=== PATIENT | female | born 1945 | race Caucasian/White ===

== ENCOUNTER 2018-06-11 05:33 | Observation (INO) ==
[2018-06-11] MEDS ORDERED: Chlorhexidine Gluconate 2% 1 Pack (2 Cloths) TOPICAL ONE (06:07)
[2018-06-11] MEDS ORDERED: Metoprolol Tartrate 25 MG Tablet PO ONE (06:07)
[2018-06-11] MEDS ORDERED: Heparin - SQ 10,000 UNITS/ML Vial SQ PRN (06:09)
[2018-06-11] MEDS ORDERED: Sodium Chloride 0.9% 2 ML Flush PRN IV.FLUSH (06:11)
[2018-06-11] MEDS ORDERED: Sodium Chlor 0.9% Inj 500 ML IV.SIG SCH (07:00)
[2018-06-11] MEDS ORDERED: Lidocaine 1%/Epinephrine 1:100,000 Inj 30 ML Vial ONE (07:00)
[2018-06-11] MEDS: ceFAZolin 2 GM IV; once IV.SIG PRN ×2 (07:01→08:00)
[2018-06-11] MEDS ORDERED: Glycopyrrolate Inj 1 MG/5 ML Syringe IV.PUSH ONE (07:23)
[2018-06-11] MEDS ORDERED: Lidocaine PF 1% Inj 5 ML Syringe OTHER ONE (07:23)
[2018-06-11] MEDS ORDERED: Normosol-R pH 7.4 Inj 3,000 ML IV.CONT ONE (07:23)
[2018-06-11] MEDS ORDERED: Methylene Blue Inj 100 MG/10 ML Vial OTHER ONE (11:19)
[2018-06-11] MEDS ORDERED: Sugammadex Inj 200 MG/2 ML Vial IV.PUSH ONE (11:35)
[2018-06-11] MEDS ORDERED: LORazepam 0.5 MG Tablet PO PRN (12:13)
[2018-06-11] MEDS ORDERED: fentaNYL Citrate Inj 100 MCG/2 ML Ampul ONE (12:44)
[2018-06-11] MEDS: KCL 20 mEq/D5W/NaCl 0.45% Inj 1,000 ML IV.CONT SCH ×2 (12:50→23:37)
[2018-06-11] MEDS ORDERED: *morphine SULFATE 4 MG/ML PERIprocedure ONLY ONE (13:07)
--- NOTE | 2018-06-11 13:48 | MP ---
cc: Tiffanie Hoang MD,Gracy Ortiz,Ha Rodríguez MD DATE OF OPERATION: 06/11/2018 DATE OF PROCEDURE: 06/11/2018 PREOPERATIVE DIAGNOSES: 1. Postmenopausal bleeding. 2. Complex atypical endometrial hyperplasia. 3. Multiple prior abdominal surgeries with history of adhesions. POSTOPERATIVE DIAGNOSES: 1. Postmenopausal bleeding. 2. Complex atypical endometrial hyperplasia. 3. Multiple prior abdominal surgeries with history of adhesions. PROCEDURE PERFORMED: Laparoscopy with extensive lysis of adhesions, robotic-assisted laparoscopic hysterectomy, bilateral salpingo-oophorectomy with extensive lysis of adhesions. 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 ANESTHESIA: General endotracheal anesthesia. ESTIMATED BLOOD LOSS: 150 mL. IV FLUIDS: 2100 mL. URINE OUTPUT: 1200 mL. HISTORY: A 73-year-old female with postmenopausal bleeding. Ultrasound showed thickened endometrial stripe. She had endometrial sampling, which showed polypoid changes with complex atypical endometrial hyperplasia. She was counseled regarding options and after much discussion, agreed to move forward with surgery via attempted laparoscopy robotics with the understanding we may need to convert to laparotomy. She was seen again in the preoperative holding area where findings are again reviewed. Plan of care discussed. She made it clear that under no circumstances would she allow lymph node dissection, only to biopsy an isolated abnormal finding if detected. She had some other requests including having her Orta removed early. She had issues with her IV preoperatively and other things that were addressed to the extent of my capacity, but she agreed to move forward with surgery as had been discussed. FINDINGS: Upon entry into the peritoneal cavity, the omentum and the descending colon and sigmoid colon densely adherent to the anterior abdominal wall in the midline and in the right upper and lower quadrants. In the pelvis, the bladder was adherent to the anterior uterine wall near the fundus all along the anterior surface of the uterus with extensive dense adhesions. The peritoneal surfaces, other than the adhesions, looked normal in that there were no peritoneal implants. There were no overtly enlarged pelvic or periaortic lymph nodes. The liver diaphragm edges were smooth. The uterus once removed was evaluated. There were what appeared to be some small polypoid changes of hyperplasia. No overt cancer. No evidence to suggest invasive cancer on preliminary assessment. STATEMENT OF COMPLEXITY/MODIFIER: It is estimated that at least an hour and a half of operative time, possibly 2 hours total, was used lysing adhesions to gain safe entry into the peritoneal cavity, to restore normal anatomy and to accomplish surgical objectives and between lysing adhesions in the abdomen and pelvis, added significantly to the complexity of this case. A modifier should be applied accordingly. DESCRIPTION OF PROCEDURE: She was taken to the operating room and placed in dorsal lithotomy position. After general endotracheal anesthesia was administered, a timeout was undertaken. She was identified by site recognition and hospital ID bracelet and the proposed procedure was reviewed and confirmed. She was carefully positioned in padded Amari stirrups. Her arms were padded and secured to the sides. She was further secured to the operating table with egg crate padding and tape in a cross chest over the shoulder fashion. All sites noted to be properly aligned with no malalignments or pressure points. She was prepped and draped in sterile fashion and placed in lithotomy position. The cervix grasped. Uterine cavity sounded and a small VCare manipulator was inserted and secured in usual fashion. Orta catheter was placed in the bladder. She was returned to low lithotomy position. Change of sterile gloves undertaken. We completed draping in anticipation of laparoscopy. We confirmed that an orogastric tube was in the stomach on suction. After completing draping and with manual elevation of the abdominal wall and direct laparoscopic visualization, a 5 mm cannula was introduced into the left upper quadrant. An atraumatic entry was confirmed. Carbon dioxide gas was insufflated. An 8 mm cannula was placed in the left lateral abdomen and through this exposure, with blunt and sharp dissection, adhesiolysis was initiated to take down the omentum and the colon from the anterior abdominal wall. This was done in a stepwise fashion until all of the omentum and bowel had been resected. The bowel wall was inspected. There was no disruption to the bowel wall and bleeders were rendered hemostatic with focal cautery or single small vascular clip. She was placed in Trendelenburg position. Peritoneal washings were obtained for cytology. The anatomy was surveyed with findings as described above. The small bowel was folded back on its mesenteric root and 3 Ray-Bekah sponges were placed around the root of the small bowel mesentery. Robotic system was brought into the operative field and attached in the usual fashion. Monopolar scissors, fenestrated bipolar forceps and ProGrasp manipulators were placed in arms #1, 2, and 3 respectively and I took my place at the surgeon's console. The right round ligament was isolated, cauterized, and transected. The anterior and posterior leafs of the broad ligament were opened. The right ureter was identified. The right infundibulopelvic ligament was isolated. The intervening peritoneum was opened. The infundibulopelvic ligament was isolated to the level of the pelvic brim where it was cauterized and transected. Posterior peritoneum opened along the right side of the uterus and cervix and the uterine vessels were skeletonized. Adhesiolysis was initiated by taking down the bladder flap and adhesions from the anterior wall of the uterus and was continued with sharp dissection until the bladder was adequately freed from the right side of the uterus and cervix to isolate the uterine vessels. The uterine vessels were then further skeletonized and cauterized. Attention was directed toward the left side where adhesiolysis was carried out, mobilizing the colon from its adherence to the left pelvic sidewall overlying the adnexal structures until the colon could be mobilized and access could be gained to the left pelvic sidewall. The left round ligament was isolated, cauterized, and transected. The anterior and posterior leafs of the broad ligament were opened. The left ureter was identified. The left infundibulopelvic ligament was isolated. Intervening peritoneum was opened and the infundibulopelvic ligament was isolated to the level of the pelvic brim where it was cauterized and transected. Posterior peritoneum opened along the left side of the uterus and cervix and the left vesicouterine peritoneum and adhesions were taken down with sharp dissection. Left uterine vessels were skeletonized and cauterized. Further dissection was carried out to now complete dissection of the bladder flap and the appropriate plane was eventually identified underneath the extensive scar tissue and taken down below the level of the cervix. Now, the left uterine vessels were transected. The cardinal, paracervical and uterosacral ligaments were isolated, cauterized, and transected along the left side of the uterus and then attention was redirected to the right side where the right uterine vessels were transected and the cardinal, paracervical and uterosacral ligaments were isolated, cauterized, and transected. Circumferential colpotomy was performed the cervix from the upper vagina. The specimen was withdrawn transvaginally which included uterus, cervix, tubes and ovaries. The pneumo-occluder balloon was placed in the vagina to maintain pneumoperitoneum. The instruments 1 and 3 were exchanged for needle drivers as an 0 Vicryl suture was introduced. The cuff was closed with interrupted [id number] 0 Vicryl suture, starting at the lateral edge to secure the corners, incorporating the posterior peritoneum and edge of the uterosacral ligament and they were tied securely. Interrupted [id number] 0 Vicryl sutures were continued until the cuff was rendered completely hemostatic, well supported and well approximated. The suture, after tying, the needle was cut and removed. The bladder was filled with saline dyed with methylene blue. The bladder distended nicely under pressure. There was a good margin between the vaginal cuff suture line and the edge of the bladder. The ureters showed good peristalsis bilaterally. The bladder wall was intact with no areas of weakness or blue dye and certainly no extravasation of dye and the bladder was drained. Pathology came back showing no evidence of invasive cancer and it was felt that all reasonable surgical objectives had been completed. The pelvis was thoroughly irrigated. Small bleeders were rendered hemostatic with bipolar cautery. Hemostatic Ivory powder was placed across the vaginal cuff and lateral pelvic sidewalls. It was felt that all objectives were complete such that the robotic system was disengaged after the instruments were removed. I reentered the bedside under sterile condition. Each of the 3 Ray-Bekah sponges were removed through the 12 mm cannula. Each were inspected and noted to be removed in their entirety. Visual inspection revealed no remaining foreign objects in the peritoneal cavity and preliminary counts were correct. The 12 mm fascial defect was closed with interrupted 0 Vicryl sutures which were in the fascia completely, airtight and hemostatic and the remaining cannulas were withdrawn. Carbon dioxide gas was removed, and 3-0 Vicryl subcutaneous, 3-0 Vicryl subcuticular and Steri-Strips were used to close the incisions. She was returned to dorsal lithotomy position. Pelvic exam confirmed the vaginal cuff was well supported and hemostatic. There were no vaginal lacerations. There was some superficial mucosal irritation and the remaining hemostatic Ivory was placed in the vaginal cuff and lateral vaginal sidewalls. Final counts were correct. She was returned to dorsal supine position and was pending reversal of anesthesia when I left the operating room to precede her to the postanesthesia care unit. MD HERMELINDO Thapa/justine , 01:11 PM , 01:29 PM
[2018-06-11] MEDS ORDERED: Atenolol 25 MG Tablet PO PRN (16:49)
[2018-06-11] MEDS: Sodium Chloride 0.9% 2 ML Flush BID IV.FLUSH SCH ×2 (19:53→23:38)
[2018-06-11] MEDS ORDERED: Budesonide-Formoterol 80/4.5 MCG 6.9 GM Inhaler INH PRN (21:00)
[2018-06-12 05:28] LABS: Baso % (Auto) 0.3 % (0.0-2.0); Hematocrit 37.2 % (35.0-46.0); Hemoglobin 12.3 gm/dL (11.6-15.3); Lymph # (Auto) 1.2 th/mm3 (1.0-4.8); Lymph % (Auto) 13.5 % (9.0-44.0); Mean Corpuscular HGB Conc 32.9 % (32.0-36.0); Mean Corpuscular Hemoglobin 32.8 pg (27.0-34.0); Mean Corpuscular Volume 99.6 fL (80.0-100.0); Mean Platelet Volume 8.7 fL (7.0-11.0); Mono # (Auto) 0.8 th/mm3 (0.0-0.9); Mono % (Auto) 8.5 % (0.0-8.0); Neut # (Auto) 7.2 th/mm3 (1.8-7.7); Neut % (Auto) 77.7 % (16.0-70.0); Platelet Count 222 th/mm3 (150-450); Red Blood Count 3.74 mil/mm3 (4.00-5.30); Red Cell Distribution Width 13.7 % (11.6-17.2); White Blood Count 9.2 th/mm3 (4.0-11.0)
[2018-06-12 05:56] LABS: Calcium 7.4 mg/dL (8.5-10.1); Carbon Dioxide 27.5 meq/L (21.0-32.0); Potassium 3.8 meq/L (3.5-5.1)
[2018-06-12 06:04] LABS: Albumin 2.9 g/dL (3.4-5.0); Calcium-Albumin Corrected 8.3 mg/dL (8.5-10.1)
[2018-06-12 07:51] VITALS: BP 123/58; PULSE 58; RESP 16; TEMP 98; O2SAT 97
[2018-06-12] MEDS ORDERED: Atenolol 50 MG Tablet PO SCH (09:00)
--- NOTE | 2018-06-12 10:27 | MD ---
cc: Tiffanie Hoang MD,Alyse Ortiz,Ha Rodríguez MD DATE OF DISCHARGE: PROCEDURE: 06/11/2018: Robotic-assisted laparoscopic hysterectomy, bilateral salpingo-oophorectomy, extensive lysis of adhesions. HOSPITAL COURSE: She did well in the early postoperative period; hemodynamically stable, tolerating oral intake. Orta catheter out, voiding satisfactorily. Ins and Outs: 4190/2180+. LABORATORY DATA: This morning show an H and H of 12.3 and 37.2. Electrolytes essentially normal, potassium 3.8, BUN and creatinine 9 and 0.69. PHYSICAL EXAMINATION: VITAL SIGNS: She is afebrile, pulse 58-64, respirations 16-18, blood pressure 120-144/52 to isolated 106. Current blood pressure 123/58, O2 saturations greater than or equal to 96%. GENERAL: Alert and oriented x3. LUNGS: Clear. Mild basilar rales. CARDIOVASCULAR: Regular rate and rhythm. ABDOMEN: Soft. Incision is clean and dry. GYNECOLOGIC: No bleeding. EXTREMITIES: Nontender. ASSESSMENT: Postoperative day number one. Findings at the time of surgery; steps taken. Again, discussed activities and restrictions reviewed. Questions were asked and answered. She expressed good understanding. PLAN: Anticipate discharge to home today. She is to contact our office to schedule a followup in 3-4 weeks. She is to resume prior medications; will have a prescription for Percocet for pain. Activities and restrictions are emphasized. No heavy lifting, pushing or pulling and she is to follow prescribed pelvic rest for at least 8 weeks. Our office number is made available should she have any questions or problems between now and the time of scheduled followup. MD HERMELINDO Thapa/parveen , 08:03 AM , 08:08 AM
== END 2018-06-12 11:07 | disposition home or self-care (01) ==
LOC: HSDI 05:33 → HSDC 05:33 → HCIN 13:39
PROVIDERS: ADMIT Obstetrics & Gynecology Gynecologic Oncology; ATTEND Obstetrics & Gynecology Gynecologic Oncology